=== PATIENT | female | born 1990 | race Two or more races ===

== ENCOUNTER 2024-12-09 20:10 | Emergency (ER) | payer MEDICAID, SELFPAY ==
[2024-12-09 20:55] VITALS: BP 137/75; PULSE 85; RESP 20; TEMP 36.6; O2SAT 100
--- NOTE | 2024-12-09 21:02 | PD.EDABDPN ---
ED Abdominal Pain RME/HPI General Chief Complaint: Abdominal Pain Stated complaint: RIGHT ABD PAIN,PAIN IN URINATION Time seen by provider: 12/09/24 20:21 Arrival date/time: 12/09/24 20:10 Limitations: no limitations RME / HPI RME / HPI narrative: 34-year-old female with no reported past medical history presents for evaluation of right-sided suprapubic pain x 3 days. She describes it as sharp with radiation to her right flank. She endorses intermittent nausea without vomiting. Denies fever, dysuria, vaginal bleeding, change in vaginal discahrge, chills, diarrhea, constipation, chest pain, shortness of breath. Last normal menstrual cycle x 2 weeks ago. MD complaint: abdominal pain Quality: sharp Related Data Previous Rx's ?Medication ?Instructions ?Recorded bisacodyl 10 mg rectal suppository 10 mg NH QDAY PRN constipation #12 07/19/22 (Dulcolax (bisacodyl)) ea ondansetron 4 mg disintegrating 4 mg PO Q8H PRN nausea and 12/10/24 tablet vomiting #10 tabs Allergies Allergy/AdvReac Type Severity Reaction Status Date / Time No Known Allergies Allergy Verified 12/09/24 20:11 Review of Systems Constitutional Constitutional: Denies chills, Denies fever(s) and Denies headache(s) ENT Ears, Nose, Mouth, and Throat: Denies headache(s) Cardiovascular Cardiovascular: Denies chest pain, Denies dyspnea and Denies leg edema Respiratory Respiratory: Denies cough and Denies dyspnea Gastrointestinal Gastrointestinal: Reports abdominal pain, Denies change in stool character, Denies coffee ground emesis, Denies constipation, Denies hematemesis, Reports nausea and Denies vomiting Genitourinary Genitourinary: Denies abnormal vaginal bleeding, Denies dysuria and Denies hematuria Musculoskeletal Musculoskeletal: Reports back pain Integumentary/Breasts Skin/Breast: Denies rash Neurologic Neurologic: Denies headache(s) Past Medical History Past Medical History NEUROLOGIC: Negative Neurological Disorders, Seizures or Paralysis CARDIAC: Negative Cardiac Disorders or Congestive Heart Failure RESPIRATORY: Negative Chronic Obstructive Pulmonary Disease (COPD) or Asthma GASTROINTESTINAL: Negative Gastrointestinal Disorders or Hepatitis GENITOURINARY: Negative Genitourinary Disorders or Renal Disease MUSCULOSKELETAL: Negative Musculoskeletal Disorders ENDOCRINE: Negative Endocrine Disorders, Diabetes Mellitus Type 1 or Diabetes Mellitus Type 2 HEMATOLOGIC: Negative Blood Disorders PSYCHO/SOCIAL: Negative Depression, Anxiety or Depression OTHER HISTORY: Positive Hospitalization (CHILDBIRTH); Negative Autoimmune Disease, Down Syndrome, Developmental Delay, Shingles, Falls, Blood Transfusions, Blood Transfusion Reaction, Anesthesia Reactions, MRSA, VRSA, Vancomycin-Resistant Enterococci, Human Immunodeficiency Virus (HIV), Chicken Pox, Measles, Mumps, Rubella (Bengali Measles), Pertussis, Clostridium Difficile or Cancer Family History FAMILY HISTORY: Negative Family Psychiatric Problems, Family Respiratory Disorders, Family Cardiac Disorders, Family Gastrointestinal Problems, Family Cancer, Family Surgery or Family Anesthesia Reaction Surgical History SURGICAL: Positive Abdominal Surgery and Section (x3); Negative Nephrectomy, Transurethral Resection or Joint Replacement Social History SMOKING STATUS: Never smoker ED Exam General Limitations: Present no limitations General appearance: Present alert and in no apparent distress Head Head exam: Present atraumatic and normocephalic Eye Eye exam: Present normal appearance and EOMI ENT ENT exam: Present mucous membranes moist Neck Neck exam: Present full ROM Chest Chest inspection: Present normal inspection and symmetric chest wall rise Respiratory Respiratory exam: Present normal lung sounds bilaterally; Absent respiratory distress Cardiovascular Cardiovascular exam: Present regular rate and +S1 Abdominal Exam Abdominal exam: Present soft and normal bowel sounds; Absent distention, tenderness, guarding, rebound or rigidity Extremities Exam Extremities exam: Present normal inspection and full ROM Back Exam Back exam: Present normal inspection and full ROM; Absent CVA tenderness (R) or CVA tenderness (L) Neurological Exam Neurological exam: Present alert Psychiatric Psychiatric exam: Present normal affect Skin Skin exam: Present warm and dry Course Quality Measures none Orders Category Date Time Status US renal BI Stat Exams 12/09/24 22:11 Completed BMP [Basic Metabolic Panel] Stat Lab 12/09/24 23:11 Completed CBC Stat Lab 12/09/24 23:11 Completed HCG Qualitative,Urine Stat Lab 12/09/24 21:24 Completed UA, C/S IF [Urinalysis, C/S if Indicated] Stat Lab 12/09/24 21:24 Completed Acetaminophen Tab [Tylenol Tab] Med 12/09/24 21:01 Discontinued 650 mg PO X1 ONE Vital Signs Vital signs: Vital Signs Temperature 97.9 F 12/09/24 20:55 Pulse Rate 85 12/09/24 20:55 Respiratory Rate 20 12/09/24 20:55 Blood Pressure 137/75 H 12/09/24 20:55 Pulse Oximetry (%) 100 12/09/24 20:55 Oxygen Delivery Method Room Air 12/09/24 20:55 Pulse ox 100% on room air, within normal limits. Abdominal Pain MDM MDM Narrative MDM Narrative:: 34-year-old female presented for acute onset suprapubic pain with radiation to her right flank. Vital signs reassuring. hCG was negative with no ovarian mass or signs of torsion on ultrasound today. Evidence of parenchymal disease on ultrasound but kidney function within normal limits therefore less concern for CKD at this time. No evidence of infection on UA but hematuria present. Patient's symptoms were improved following acetaminophen department. Ultimately she was discharged home with plan to follow-up with primary care within the week for further evaluation and treatment. Return precautions were provided. Patient data External records reviewed:: [facility] previous records Clinical information provided by:: patient Social determinants that could affect healthcare access:: none Patient has the following chronic illnesses:: None reported. How is presenting disease/condition affected by chronic disease/condition?: no chronic disease Evaluation data The following diagnostics were reviewed and interpreted by me:: lab results and radiology exam(s) Lab and/or radiology exams considered but not ordered:: CT abdomen pelvis considered not ordered. Interpretation Summary: MPRESSION: No renal or ureteral calculi, no hydronephrosis Normal appendix No bladder mass or bladder calculi Moderate degenerative disc disease L5-S1 Mild leukocytosis on CBC. Kidney function within normal limits. Negative hCG. Medications / Prescriptions Medications or Prescriptions considered but not ordered:: Rx given. Medication administrations:: Medication Administration History Discontinued Medications Acetaminophen (Acetaminophen 325 Mg Tablet) 650 mg PO X1 ONE Stop: 12/09/24 21:02 Last Admin: 12/09/24 21:12 Dose: 650 mg Documented By: SAMMIE Rx given. Consultations Consultation(s) initiated? (list below): No Diagnosis Differential diagnosis abdominal pain: abdominal pain, calculus of kidney, endometriosis, gastroenteritis and other (Ectopic , ovarian torsion, SIDDHARTH, hematuria.) Most likely diagnosis given after review of the tests above:: Renal parenchyma lobe disease, hematuria. Admission Indicated Admission indicated?: not indicated Admission Request Was there a request for admission?: No Disposition Plan Disposition Plan: Discharge Discharge Attestation Discharge Attestation: The patient and all family members were given an opportunity to ask questions and understood the discharge instructions. Discharge instructions specifically effects, indications for sooner follow up or return to the emergency department, and the expected course of current diagnosis. Patient condition: Stable Discharge Plan Plan Patient Disposition: HOME (Self Care) Disposition Comment: stable Prescriptions/Referrals Prescriptions/Med Rec: New ondansetron 4 mg tablet,disintegrating 4 mg PO Q8H PRN (Reason: nausea and vomiting) Qty: 10 0RF No Action bisacodyl [Dulcolax (bisacodyl)] 10 mg suppository 10 mg NH QDAY MDD 1 PRN (Reason: constipation) Qty: 12 0RF Referrals: No Primary/Family,Physician [Primary Care Provider] - In 1 week Problem List Clinical Impression: Hematuria, Acute suprapubic pain, Renal parenchymal disease, Hydronephrosis of right kidney Patient/Caregiver Discharge Instructions Other Activity Instructions:: Take Zofran as needed for nausea. Continue to take Tylenol as needed for abdominal pain. Do not take ibuprofen until seen by primary care doctor. Follow-up with primary care doctor regarding kidneys within the next week. Return to the ED if your symptoms worsen or change. Education Materials: ED Hematuria Print Language: [place] Stand Alone Forms: Mariia Award Info., Patient Portal Info Letter PA/DISTRICT MANAGER [employer]IMARY [employer] SALES Supervising Physician PA/DISTRICT MANAGER [employer] Supervising Physician: Dr. Valerio
[2024-12-09] MEDS: ACETAMINOPHEN 325 MG TABLET 650 MG PO (21:12)
[2024-12-09 21:35] LABS: Collection Type, Urine Clean Catch
[2024-12-09 21:55] LABS: HCG Qualitative,Urine Negative
[2024-12-09 22:01] LABS: Bacteria,Urine Rare; Bilirubin,Urine Negative (Negative); Blood,Urine 3+ (Negative); Clarity,Urine Turbid (Clear/Hazy); Color,Urine Yellow (Lt Yel-Yel); Culture Indicated,Urine Not Indicated; Glucose, Urine Negative (Negative); Ketones,Urine Trace (Negative); Leukocyte Esterase,Urine Negative (Negative); Nitrite,Urine Negative (Negative); Protein,Urine 1+ (Neg - Trace); RBC,Urine 2555 /hpf (0-3); Specific Gravity,Urine 1.029 (1.001-1.035); Squamous Epithelial Cell,Urine 6 /hpf (0-5); Urobilinogen,Urine Negative mg/dL (0.0-1.0); WBC,Urine 6 /hpf (0-5)
--- NOTE | 2024-12-09 22:11 | XR_ITS ---
Examination: Retroperitoneal ultrasound, complete Technique: Multiple high resolution grayscale images of the retroperitoneum obtained, including kidneys and bladder. Exam date and time:December 09, 2024 1001 hours INDICATIONS: Right flank pain and hematuria beginning 3 days ago FINDINGS: Right kidney 10.1 cm in the cortex 2.3 cm Left kidney 11.2 cm cortex 1.1 cm Minimal right hydronephrosis Minimal renal parenchymal scar formation No renal calculi No bladder mass or bladder calculi Bladder prevoid volume 103 cc IMPRESSION: Minimal right hydronephrosis Minimal bilateral renal parenchymal scar formation
[2024-12-09 23:35] LABS: Basophils # (Auto) 0.1 Thou/mm3 (0.0-0.2); Basophils % (Auto) 1 % (0-2.5); Eosinophils # (Auto) 0.1 Thou/mm3 (0.0-0.5); Eosinophils % (Auto) 1 % (0-10); Hematocrit 36.7 % (36.0-46.0); Hemoglobin 12.8 g/dL (12.0-16.0); Immature Granulocytes % (Auto) 0 % (0-0); Immature Granulocytes Auto 0.03 Thou/mm3 (0.00-0.00); Lymphocytes % (Auto) 15 % (10-50); Mean Corpuscular HGB Conc 34.9 g/dl (31.0-37.0); Mean Corpuscular Hemoglobin 30.9 pg (25.0-35.0); Mean Corpuscular Volume 89 fL (80-100); Monocytes # (Auto) 0.6 Thou/mm3 (0.0-0.8); Monocytes % (Auto) 5 % (0-12); Neutrophils # (Auto) 10.1 Thou/mm3 (1.8-7.7); Neutrophils % (Auto) 79 % (37-80); Nucleated Red Blood Cell % 0 /100 WBC (0); Platelet Count 280 Thou/mm3 (140-440); RDW Standard Deviation 41.8 fL (36.4-46.3); Red Blood Count 4.14 Miln/mm3 (4.00-5.20); White Blood Count 12.9 Thou/mm3 (3.6-11.0)
[2024-12-09 23:52] LABS: Anion Gap 11 (7-16); BUN/Creatinine Ratio 15 Ratio (12-20); Blood Urea Nitrogen 12 mg/dL (9-23); Calcium 9.8 mg/dL (8.3-10.6); Carbon Dioxide 24.5 mMol/L (20.0-31.0); Chloride 103 mMol/L (98-107); Creatinine (Component) 0.8 mg/dL (0.6-1.3); Glucose 198 mg/dL (74-106); Osmolality,Calculated 281 (275-295); Potassium 3.6 mMol/L (3.4-5.1); Sodium 138 mMol/L (136-145); eGFR > 60 See Note
[2024-12-10 00:54] VITALS: RESP 18
== END 2024-12-10 00:55 | disposition home or self-care (01) ==
PROVIDERS: Physician Assistant; Emergency Provider Emergency Medicine
DX: R10.2 Pelvic and perineal pain (principal); R31.9 Hematuria, unspecified; N13.30 Unspecified hydronephrosis
CPT/HCPCS: 36415; 76770; 80048; 81001; 81025; 85025; 99284; A9270

== ENCOUNTER → 2025-05-26 | Outpatient (CLI) | payer MEDICAID, SELFPAY ==
--- NOTE | 2025-05-26 15:00 | XR_ITS ---
Examination: Pelvic ultrasound, transabdominal, complete Technique: Transabdominal ultrasound of the pelvis performed using grayscale imaging Date and time of exam: May 26, 2025 1459 hours INDICATIONS: Irregular heavy uterine bleeding 3 months FINDINGS: Uterus 10.2 cm endometrial stripe 0.9 cm Fluid versus blood in the lower endometrium Right ovary 2.6 cm arterial flow Left ovary 3.6 cm arterial flow IMPRESSION: Mild fluid in the lower uterine segment endometrium
== END | disposition home or self-care (01) ==
PROVIDERS: PCP Physician Assistant; Referring Provider Physician Assistant; Visit Provider Physician Assistant
DX: N93.9 Abnormal uterine and vaginal bleeding, unspecified (principal)
CPT/HCPCS: 76856